=== PATIENT | female | born 1955 | race Caucasian/White ===

== ENCOUNTER 2025-05-04 12:14 | Emergency (ER) | payer MEDICARE ==
[~2025-05-04] VITALS: Ht 167.6 cm; Wt 63.8 kg
[2025-05-04 12:25] VITALS: TEMP 97.8
--- NOTE | 2025-05-04 12:31 | ELECTROCARDIOGRAPH REPORT ---
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
--- NOTE | 2025-05-04 12:58 | RADIOLOGY REPORT ---
CHEST RADIOGRAPH Indication: CP Technique: Single frontal view of the chest was obtained Comparison: None FINDINGS: Lines and Tubes: None Lungs: No focal consolidation. Mild Elevation of the right hemidiaphragm. Pleura: No effusion. No pneumothorax. Cardiomediastinal contours: Unremarkable Bones: No acute osseous abnormality. IMPRESSION: No acute cardiopulmonary disease.
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
[2025-05-04 13:59] VITALS: BP 161/74; PULSE 55; RESP 16; O2SAT 97
== END 2025-05-04 14:57 | disposition home or self-care (01) ==
LOC: ER 12:15 → EEVIPCON 12:15 → ER 14:57
DX: T74.11XA Adult physical abuse, confirmed, initial encounter (principal); Z79.899 Other long term (current) drug therapy; X58.XXXA Exposure to other specified factors, initial encounter
CPT/HCPCS: 71045; 93005; 99283